=== PATIENT | male | born 1980 | race Caucasian/White ===

== ENCOUNTER → 2018-03-23 | Outpatient (REF) | payer OTHER ==
[2018-03-24 21:14] LABS: CHLAMYDIA DNA AMPLIFICATION NEGATIVE (NEGATIVE); GC DNA AMPLIFICATION NEGATIVE (NEGATIVE)
== END ==
LOC: M SFHCLERA 18:24
DX: R30.0 Dysuria (principal); R36.9 Urethral discharge, unspecified